=== PATIENT | male | born 1950 | race Caucasian/White ===

== ENCOUNTER 2018-07-28 08:25 | Outpatient (CLI) | payer MEDICARE, BC ==
--- NOTE | 2018-07-28 11:04 | MRI ---
LUMBAR SPINE MRI WITHOUT IV CONTRAST: History: 68-year-old male with history of M54.16 lumbar radiculopathy, bilateral leg pain down to toes for 7 y ears. FINDINGS: Multiplanar, multisequence MRI examination of the lumbar spine is performed. Conus medullaris region is unremarkable, terminating at L1-2. There are generalized disc desiccation changes and ligament and facet hypertrophic changes. L1-2 and L2-3: No significant canal or foraminal stenosis. L3-4: There is some mild central canal stenosis and moderate lateral recess stenosis and mild to mode rate bilateral foraminal stensois. L4-5: There is very severe central canal and lateral recess stenosis with moderate left foraminal kush nosis and mild right foraminal stenosis. Severe facet arthrosis with prominent amount of fluid within the facet joints at this level contribute considerably to the severe stenosis. L5-S1: No significant canal, lateral recess, or foraminal stenosis. There are some bilateral synovial cysts posteriorly. IMPRESSION: Very severe canal and lateral recess stenosis at L4-5 secondary to severe facet changes showing littl e change from prior exam, 09-05-10. POS: [facility]
== END 2018-07-28 08:26 | disposition home or self-care (01) ==
LOC: TBSIIMAG 08:25
PROVIDERS: ATTEND Neurological Surgery
DX: M54.16 Radiculopathy, lumbar region (principal); M48.061 Spinal stenosis, lumbar region without neurogenic claudication
CPT/HCPCS: 72148

== ENCOUNTER 2022-09-12 10:27 | Outpatient (CLI) | payer MEDICARE, BC | END 2022-09-12 10:28 | disposition home or self-care (01) | LOC: TBSIIMAG 10:27 | PROVIDERS: ATTEND Neurological Surgery | DX: M47.26 Other spondylosis with radiculopathy, lumbar region (principal); M48.061 Spinal stenosis, lumbar region without neurogenic claudication | CPT/HCPCS: 72148 ==

== ENCOUNTER 2024-02-11 07:20 | Day surgery (SDC) | payer MEDICARE ==
[2024-02-10 08:52] VITALS: BMI 29.8
[2024-02-11] MEDS ORDERED: Bupivacaine PF 0.5% 30 ML VIAL ONE (08:54)
[2024-02-11] MEDS ORDERED: EPINEPHrine 1 MG/ML VIAL ONE (08:54)
[2024-02-11] MEDS ORDERED: Thrombin 5000 UNITS/5 ML VIAL ONE (08:54)
[2024-02-11] MEDS ORDERED: PROPOFOL 20 ML ONE (09:22)
[2024-02-11] MEDS ORDERED: CEFAZOLIN 2 GM VIAL ONE ×2 (09:22→15:31)
[2024-02-11] MEDS ORDERED: Lidocaine 1% PF 5 ML VIAL ONE (09:22)
[2024-02-11] MEDS ORDERED: Sodium Chloride 0.9% 100 ML ONE ×3 (09:22→15:31)
[2024-02-11] MEDS ORDERED: Rocuronium Bromide 10 MG/ML (10ML VIAL) ONE (09:22)
[2024-02-11] MEDS ORDERED: fentaNYL PF 100 MCG/2 ML SYRINGE ONE ×2 (09:22→11:18)
[2024-02-11] MEDS ORDERED: Ondansetron PF 4 MG/2 ML Vial ONE (10:14)
[2024-02-11] MEDS ORDERED: Dexamethasone 20 MG/5 ML VIAL ONE (10:14)
[2024-02-11] MEDS ORDERED: Dexmedetomidine 200 MCG/2 ML VIAL ONE (12:01)
[2024-02-11] MEDS ORDERED: Morphine Sulfate 2 MG/ML SYRINGE SLOW IVP PRN (12:01)
[2024-02-11] MEDS ORDERED: HYDROmorphone 2 MG/ML VIAL SLOW IVP PRN (12:01)
[2024-02-11] MEDS ORDERED: PACU-Morphine 4MG/ML VIAL SLOW IVP PRN (12:01)
[2024-02-11] MEDS ORDERED: Promethazine HCl 25 MG/ML VIAL IM PRN (12:01)
[2024-02-11] MEDS ORDERED: Ondansetron HCl/PF 4 MG/2 ML Vial IVP PRN (12:01)
[2024-02-11] MEDS ORDERED: NEOSTIGMINE 3 MG/3 ML SYR 3 MG/3 ML SYRINGE ONE (12:11)
[2024-02-11] MEDS ORDERED: GLYCOPYRROLATE/PF 0.2 MG/ML VIAL ONE (12:11)
[2024-02-11] MEDS ORDERED: fentaNYL 50 mcg/mL 1 mL Vial ONE (13:02)
[2024-02-11] MEDS ORDERED: HYDROmorphone 0.5 MG/0.5 ML SYRINGE ONE (13:02)
[2024-02-11] MEDS ORDERED: Tamsulosin HCl 0.4 MG CAP ONE (13:21)
[2024-02-11] MEDS ORDERED: Cyclobenzaprine 10 MG TAB ONE (13:22)
[2024-02-11] MEDS ORDERED: HYDROcodone/Acetaminophen 5/325 mg Tablet ONE (17:55)
== END 2024-02-11 18:09 | disposition home or self-care (01) ==
LOC: SDC 07:20
PROVIDERS: ATTEND Neurological Surgery
PROC: 0SG007J Fusion of Lumbar Vertebral Joint with Autologous Tissue Substitute, Posterior Approach, Anterior Column, Open Approach (ICD-10-PCS; principal; 2024-02-11)
DX: M43.16 Spondylolisthesis, lumbar region (principal); M48.061 Spinal stenosis, lumbar region without neurogenic claudication; I10 Essential (primary) hypertension; I48.91 Unspecified atrial fibrillation; E78.5 Hyperlipidemia, unspecified; Z79.82 Long term (current) use of aspirin; Z79.899 Other long term (current) drug therapy
CPT/HCPCS: 20931; 20936; 22612; 22840; J0171; J3010; J3490; C1713; C1889; J0665; J1100; J1170; J2405; J2704

== ENCOUNTER 2025-03-30 12:14 | Outpatient (CLI) | payer MEDICARE | END 2025-03-30 12:15 | disposition home or self-care (01) | LOC: CT 12:14 | PROVIDERS: ATTEND Orthopaedic Surgery | DX: M17.11 Unilateral primary osteoarthritis, right knee (principal) | CPT/HCPCS: 71046; 80048; 81001; 85025; 85610; 87081; 93005; 93010 ==